=== PATIENT | female | born 1990 | race African-American/Black ===

== ENCOUNTER 2020-02-26 19:18 | Emergency (ER) | payer SELFPAY ==
[2020-02-26 19:18] VITALS: BP 135/74; PULSE 81; RESP 18; TEMP 36.6; O2SAT 98; BMI 27.4
[2020-02-26 19:28] VITALS: BMI 33.3
--- NOTE | 2020-02-26 19:28 | PC.NURSE ---
md assessing patient. states to obtain urine and send to ob to register.
[2020-02-26 19:31] LABS: Microscopic, Urine URINE MICROSCOPIC (MICROSCOPIC)
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
[2020-02-26 19:45] LABS: Appearance,Urine CLEAR (Clear); Bilirubin,Urine Negative (Negative); Blood, Urine Negative (Negative); Color,Urine YELLOW (Yellow); Glucose,Urine (UA) Negative (Negative); Ketones,Urine Negative (Negative); Leukocyte Esterase,Urine TRACE (Negative); Nitrate,Urine Negative (Negative); Protein,Urine Negative (Negative); Urobilinogen,Urine 0.2 EU/dl (0.2)
[2020-02-26 19:49] VITALS: BP 135/74; PULSE 82; RESP 16; TEMP 36.7; O2SAT 98
[2020-02-26 20:11] LABS: Bacteria,Urine Trace /lpf; WBC,Urine Occasional #/hpf (0-3)
== END 2020-02-26 19:55 | disposition home or self-care (01) ==
PROVIDERS: Emergency Provider Family Medicine
DX: R10.32 Left lower quadrant pain (principal); V43.52XA Car driver injured in collision with other type car in traffic accident, initial encounter; Y92.414 Local residential or business street as the place of occurrence of the external cause; Z3A.35 35 weeks gestation of pregnancy
CPT/HCPCS: 81001; 99282

== ENCOUNTER 2020-02-26 19:56 | Outpatient (CLI) | payer SELFPAY ==
[2020-02-26 20:23] VITALS: BMI 40.7
[2020-02-26 20:42] VITALS: BP 117/73; PULSE 93; RESP 17; TEMP 37; BMI 40.7
[2020-02-26 20:51] LABS: Amphetamine/Metha Screen,Urine Negative ng/ml (<1000); Barbiturates Screen,Urine Negative ng/ml (<200); Benzodiazepines Screen,Urine Negative ng/ml (<200); Cannabinoid Screen,Urine Negative ng/ml (<50); Cocaine Screen,Urine Negative ng/ml (<300); Methadone Screen,Urine Negative ng/ml (<300); Opiate Screen,Urine Negative ng/ml (<300); Phencyclidine Screen,Urine Negative ng/ml (<25)
== END 2020-02-26 21:59 | disposition home or self-care (01) ==
LOC: OBOUT 19:58 → OB 20:01
PROVIDERS: Visit Provider Obstetrics & Gynecology
DX: O26.893 Other specified pregnancy related conditions, third trimester (principal); Z3A.38 38 weeks gestation of pregnancy
CPT/HCPCS: 59025; 80305; G0463